=== PATIENT | male | born 1995 | race Caucasian/White ===

== ENCOUNTER 2020-07-02 10:32 | Emergency (ER) | payer OTHER ==
[~2020-07-02] VITALS: Ht 175.3 cm; Wt 63.6 kg
[2020-07-02] MEDS ORDERED: proparacaine 0.5% ophthalmic drops 15ml EACHEYE ONE (11:30)
[2020-07-02] MEDS ORDERED: fluorescein sod 1mg ophthalmic strip EACHEYE ONE (11:30)
[2020-07-02] MEDS ORDERED: ERYT1OIN6 RIGHTEYE (12:34)
[2020-07-02 12:50] VITALS: BP 145/55
== END 2020-07-02 12:50 | disposition home or self-care (01) ==
LOC: ER 10:33
DX: S05.01XA Injury of conjunctiva and corneal abrasion without foreign body, right eye, initial encounter (principal); H57.11 Ocular pain, right eye; H53.8 Other visual disturbances; Z79.2 Long term (current) use of antibiotics; X58.XXXA Exposure to other specified factors, initial encounter; Y93.89 Activity, other specified; Y92.89 Other specified places as the place of occurrence of the external cause; Y99.8 Other external cause status
CPT/HCPCS: 99283